=== PATIENT | female | born 1995 | race Caucasian/White ===

== ENCOUNTER 2018-02-22 19:19 | Emergency (ER) | payer SELFPAY ==
[2018-02-22] MEDS ORDERED: PREDNISONE 20 MG TABLET PO ONE (20:05)
[2018-02-22] MEDS ORDERED: DIAZEPAM INJ 10 MG/2 ML DISP.SYRIN IM ONE (20:05)
--- NOTE | 2018-02-22 20:11 | ER Document Report ---
HPI - HPI Patient complains to provider of: Lower back pain Pain Level: 4 Context: Patient is a 22-year-old female who comes emergency room for chief complaint of worsening left lower back pain for about 2-3 days now, she states she thinks was because she lifted a child, she did feel a little bit of discomfort at the time, she states that it has significantly worsened and now she has a sharp spasming persistent pain in the left lower back. She denies radiation, numbness , incontinence, fever, history of IV drug abuse. She states she has had similar back pain in the past including herniated disc in the past, she has had MRIs, she states she has scoliosis. She takes no daily medications. LMP within the past month. - EENT EENT: DENIES: Sore Throat, Ear Pain, Eye problems - NEURO Neurology: DENIES: Headache, Weakness, Vision blurred, Dizzinesss / Vertigo - CARDIOVASCULAR Cardiovascular: DENIES: Chest pain - RESPIRATORY Respiratory: DENIES: Trouble Breathing, Coughing - GASTROINTESTINAL Gastrointestinal: DENIES: Abdominal Pain, Black / Bloody Stools - URINARY Urinary: DENIES: Dysuria, Urgency, Frequency - MUSCULOSKELETAL Musculoskeletal: DENIES: Extremity pain Past Medical History - General Information source: Patient - Social History Smoking Status: Current Every Day Smoker Frequency of alcohol use: None Drug Abuse: None Lives with: Family Family History: Reviewed & Not Pertinent Patient has suicidal ideation: No Patient has homicidal ideation: No Renal/ Medical History: Denies: Hx Peritoneal Dialysis Musculoskeletal Medical History: Reports Hx Musculoskeletal Deformity - scoliosis Surgical Hx: Negative - Immunizations Immunizations up to date: Yes Hx Diphtheria, Pertussis, Tetanus Vaccination: Yes Vertical Provider Document - CONSTITUTIONAL General Appearance: WD/WN, Thin, Other - patient moves with obvious discomfort, tries to stay straight and still - INFECTION CONTROL TRAVEL OUTSIDE OF THE [place] IN LAST 30 DAYS: No - HEENT HEENT: Atraumatic, Normal ENT Exam, Normocephalic - NECK Neck: Normal Inspection - RESPIRATORY Respiratory: Breath Sounds Normal, No Respiratory Distress - CARDIOVASCULAR Cardiovascular: Regular Rate, Regular Rhythm - GI/ABDOMEN Gastrointestinal: Abdomen Soft, Abdomen Non-Tender - BACK Back: negative: Normal Inspection - Tenderness along the left paralumbar musculature with muscular spasm noted. No midline tenderness, no saddle anesthesia, no signs of trauma. Normal upper and lower extremity range of motion , normal strength, normal distal neurovascular exam. - MUSCULOSKELETAL/EXTREMETIES Musculoskeletal/Extremeties: MAEW, FROM, Non-Tender - NEURO Level of Consciousness: Awake, Alert, Appropriate Motor/Sensory: No Motor Deficit, No Sensory Deficit - DERM Integumentary: Warm, Dry, No Rash Course - Re-evaluation Re-evalutation: Patient is visibly uncomfortable, she moves gingerly, she has palpable muscle spasms in her left lower back. No midline tenderness, normal distal neurovascular exam, no saddle anesthesia, no incontinence. No fever. Denies any history of IV drug abuse. Patient has had similar symptoms in the past but not in a long time. She has a mechanism of injury but no impact injury, no signs of trauma. Vital signs unremarkable. Patient will be placed on steroids , muscle relaxant, discussed recommendations, follow-up, and return precautions in detail with patient and significant other. They state understanding and agreement. - Vital Signs Vital signs: Temp Pulse Resp BP Pulse Ox 98.4 F 91 20 129/76 H 99 02/22/18 19:32 02/22/18 19:32 02/22/18 19:32 02/22/18 19:32 02/22/18 19:32 Discharge - Discharge Clinical Impression: Lower back pain Qualifiers: Chronicity: acute Back pain laterality: left Sciatica presence: without sciatica Qualified Code(s): M54.5 - Low back pain Condition: Stable Disposition: HOME, SELF-CARE Additional Instructions: Examination is consistent with muscular spasm in the lumbar paraspinal muscles, this could be from a herniated disc or muscle strain. Recommendation is to take medication as prescribed, apply heat to the area, avoid lifting/twisting. Follow-up with primary care for additional evaluation and management. Return for any concerning worsening symptoms including numbness, fever, loss of bowel or bladder control, or any other concerning symptoms. Prescriptions: Diazepam [Valium 5 mg Tablet] 1 - 2 mg PO TID PRN #12 tablet PRN Reason: Prednisone 60 mg PO DAILY #10 tablet Forms: Treatment of Relative/Child
[2018-02-22 20:59] VITALS: BP 118/76
== END 2018-02-22 20:56 | disposition home or self-care (01) ==
LOC: ER 19:19
DX: M54.5 Low back pain (principal); M62.830 Muscle spasm of back; F17.200 Nicotine dependence, unspecified, uncomplicated
CPT/HCPCS: 99283; 96372; J3360; J7512

== ENCOUNTER 2018-05-26 17:47 | Emergency (ER) | payer SELFPAY ==
[2018-05-26 18:06] VITALS: BP 123/73
[2018-05-26] MEDS ORDERED: SULFAMETHOXAZOLE/TRIMETHOPRIM 800-160 MG TABLET PO ONE (19:25)
[2018-05-26] MEDS ORDERED: PHENAZOPYRIDINE HCL 100 MG TABLET PO ONE (19:26)
[2018-05-26] MEDS ORDERED: ONDANSETRON ODT 4 MG TAB (6 TAB/ER DISP) PO PRN (19:26)
--- NOTE | 2018-05-26 19:29 | ER Document Report ---
ED General - General Chief Complaint: Flank Pain Stated Complaint: ABDOMINAL PAIN, LOW BACK PAIN Time Seen by Provider: 05/26/18 19:16 Notes: Patient is a 22-year-old female that presents to the emergency department for chief complaint of suprapubic pain and dysuria. Patient states that she started having symptoms over the weekend, and worsened yesterday dramatically, where she had significant dysuria, and urinary frequency, and suprapubic pain she also has some low back pain associated. Denies any any fevers, chills, night sweats, she states she did have one episode of vomiting yesterday, but nothing else today. Currently rates the pain she is experiencing is a 1 out of 10, describes as an aching sensation in her lower back, nonradiating. Denies having any flank pain associated with this. Past Medical History: Hypothyroidism Past Surgical History: Knee surgery, hand surgery, tonsillectomy Social History: Admits smoking cigarettes, denies alcohol or illicit drug use Family History: Reviewed and noncontributory for presenting illness Allergies: Reviewed, see documented allergy list. REVIEW OF SYSTEMS: Other than noted above, the 12 point review of systems was reviewed with the patient and were negative, all pertinent findings are included in the HPI. PHYSICAL EXAMINATION: Vital signs reviewed, nursing noted reviewed. GENERAL: Well-appearing, well-nourished and in no acute distress. HEAD: Atraumatic, normocephalic. EYES: Eyes appear normal, extraocular movements intact, sclera anicteric, conjunctiva are normal. ENT: nares patent, oropharynx clear without exudates. Moist mucous membranes. NECK: Normal range of motion, supple without lymphadenopathy LUNGS: Breath sounds clear to auscultation bilaterally and equal. No wheezes rales or rhonchi. HEART: Regular rate and rhythm without murmurs ABDOMEN: Soft, no CVA tenderness, mild suprapubic tenderness to palpation, normoactive bowel sounds. No rebound, guarding, or rigidity. No masses appreciated. EXTREMITIES: Nontender, good range of motion, no pitting or edema. NEUROLOGICAL: No focal neurological deficits. Moves all extremities spontaneously Motor and sensory grossly intact on exam. PSYCH: Normal mood, normal affect. SKIN: Warm, Dry, normal turgor, no rashes or lesions noted on exposed skin TRAVEL OUTSIDE OF THE [place] IN LAST 30 DAYS: No - Related Data Allergies/Adverse Reactions: naproxen Allergy (Verified 05/26/18 17:49) Past Medical History - Social History Smoking Status: Current Every Day Smoker Chew tobacco use (# tins/day): No Frequency of alcohol use: None Drug Abuse: None Family History: Reviewed & Not Pertinent Patient has suicidal ideation: No Patient has homicidal ideation: No Renal/ Medical History: Denies: Hx Peritoneal Dialysis Musculoskeletal Medical History: Reports Hx Musculoskeletal Deformity - scoliosis Past Surgical History: Reports: Hx Oral Surgery, Hx Orthopedic Surgery - R knee , hand, Hx Tonsillectomy - Immunizations Immunizations up to date: Yes Hx Diphtheria, Pertussis, Tetanus Vaccination: Yes Physical Exam - Vital signs Vitals: Temp Pulse Resp BP Pulse Ox 98.4 F 95 18 123/73 99 05/26/18 18:05 05/26/18 18:05 05/26/18 18:05 05/26/18 18:05 05/26/18 18:05 Course - Re-evaluation Re-evalutation: Patient seen and examined vital signs reviewed. Laboratory data and imaging were ordered as appropriate for the patient's presenting symptoms and complaint, with consideration of any critical or life threatening conditions that may be associated with their obtained history and exam as noted above. Patient was treated with Pyridium, and p.o. Bactrim Results were reviewed when available and demonstrated urinalysis with leukocyte esterase, and significant white blood cells, consistent with urinary tract infection, given patient's presenting symptoms as well The patient was re-evaluated and was improved Evaluation was most consistent with urinary tract infection, patient will prescribe Bactrim twice daily for 5 days, and Pyridium for 3 days, advised to follow-up with her primary care physician. Results were discussed with the patient at this point, after careful consideration I feel that that patient can be discharged from the emergency department, the patient was educated treatments and reasons to return to the emergency department based on their presumed diagnosis as noted above, they were advised to followup with a primary care physician in 2-3 days. Patient was agreeable to plan of care. *Note is created using voice recognition software and may contain spelling, syntax or grammatical errors. Laboratory 05/26/18 19:15 Urine Color YELLOW Urine Appearance TURBID Urine pH 6.0 Ur Specific [place] 1.020 Urine Protein 100 H Urine Glucose (UA) NEGATIVE Urine Ketones NEGATIVE Urine Blood NEGATIVE Urine Nitrite NEGATIVE Urine Bilirubin NEGATIVE Urine Urobilinogen NEGATIVE Ur Leukocyte Esterase MODERATE H Urine WBC (Auto) 121 Urine RBC (Auto) 27 Squamous Epi Cells Auto 439 Urine Mucus (Auto) MOD Urine Ascorbic Acid 20 H - Vital Signs Vital signs: Temp Pulse Resp BP Pulse Ox 98.4 F 95 18 123/73 99 05/26/18 18:05 05/26/18 18:05 05/26/18 18:05 05/26/18 18:05 05/26/18 18:05 - Laboratory Laboratory results interpreted by me: 05/26/18 19:15 Urine Protein 100 H Ur Leukocyte Esterase MODERATE H Urine Ascorbic Acid 20 H Discharge - Discharge Clinical Impression: UTI (urinary tract infection) Qualifiers: Urinary tract infection type: site unspecified Hematuria presence: without hematuria Qualified Code(s): N39.0 - Urinary tract infection, site not specified Condition: Stable Disposition: HOME, SELF-CARE Instructions: Urinary Tract Infection ([facility]) Additional Instructions: Please take medications as prescribed, if you develop signs of yeast infection, please fill the prescription for Diflucan, and take the one-time dose, to relieve your symptoms of this, symptoms of a yeast infection include white discharge, and itching. Take all medications as prescribed and finish the complete course of antibiotics even if you are feeling better sooner. Prescriptions: Fluconazole [Diflucan] 150 mg PO ONCE PRN #1 tablet PRN Reason: Phenazopyridine HCl [Pyridium 100 Mg Tablet] 100 mg PO TID #9 tablet Sulfamethoxazole/Trimethoprim [Bactrim Ds Tablet] 1 each PO BID #10 tablet Referrals: TC BURTON MD [ACTIVE STAFF] - Follow up in 3-5 days (or your primary care. )
[2018-05-26 19:52] LABS: APPEARANCE,URINE TURBID; BILIRUBIN,URINE NEGATIVE (NEGATIVE); COLOR,URINE YELLOW; GLUCOSE, URINE NEGATIVE (NEGATIVE); KETONES,URINE NEGATIVE (NEGATIVE); LEUKOCYTE ESTERASE,URINE MODERATE (NEGATIVE); NITRITE,URINE NEGATIVE (NEGATIVE); PROTEIN,URINE 100 mg/dL (NEGATIVE); UROBILINOGEN,URINE NEGATIVE mg/dL (<2.0)
== END 2018-05-26 19:34 | disposition home or self-care (01) ==
LOC: ER 17:47
DX: N39.0 Urinary tract infection, site not specified (principal); F17.210 Nicotine dependence, cigarettes, uncomplicated
CPT/HCPCS: 99284; 87086; 81001; J3490

== ENCOUNTER 2018-05-27 02:24 | Emergency (ER) | payer SELFPAY ==
[2018-05-27 03:09] LABS: ABSOLUTE LYMPHOCYTES (AUTO) 2.2 10^3/uL (0.5-4.7); ABSOLUTE MONOCYTES (AUTO) 0.8 10^3/uL (0.1-1.4); ABSOLUTE NEUT (AUTO) 4.6 10^3/uL (1.7-8.2); BASOPHILS % (AUTO) 0.7 % (0-2); EOSINOPHILS % (AUTO) 0.4 % (0-6); HEMATOCRIT 40.8 % (36.0-47.0); HEMOGLOBIN 14.3 g/dL (12.0-15.5); LYMPHOCYTES % (AUTO) 28.9 % (13-45); MEAN CORPUSCULAR HEMOGLOBIN 32.5 pg (27.0-33.4); MEAN CORPUSCULAR VOLUME 93 fl (80-97); PLATELET COUNT 235 10^3/uL (150-450); RED BLOOD COUNT 4.39 10^6/uL (3.72-5.28); RED CELL DISTRIBUTION WIDTH 13.1 % (11.5-14.0); TOTAL CELLS COUNTED % (AUTO) 100 %; WHITE BLOOD COUNT 7.6 10^3/uL (4.0-10.5)
--- NOTE | 2018-05-27 03:23 | ER Document Report ---
ED General - General Chief Complaint: Suicidal Ideation Stated Complaint: PSYCH Time Seen by Provider: 05/27/18 02:32 Mode of Arrival: Medic Information source: Patient TRAVEL OUTSIDE OF THE [place] IN LAST 30 DAYS: No - HPI Notes: Patient is a 22-year-old female history of depression and previous suicidal ideation and attempts presents to the emergency department with report that she is depressed because the holidays are coming up and she was thinking about hanging herself using her shoelaces. The patient has previously had suicidal ideation with hospitalizations dating back to age 7 when she had thoughts of killing her mother and herself related to stress over a divorce. The patient states she last had a hospitalization at age 17. The patient is currently living for the last 6 months with her boyfriend in a hotel. The patient states the boyfriend is nice to her and appropriate, but she feels guilty about treating the boyfriend negatively. The patient denies any hallucinations or homicidal ideation. The patient contacted family members and the boyfriend about her suicidal ideation and went out to a local park where the police and EMS picked her up. She was cooperative with police and EMS. Patient has seen several therapists in the past, but reports no long-standing relationship with the therapist and states that is part of the reason she is having some difficulty. Patient was seen earlier tonight with a urinary tract infection and started on Bactrim antibiotic. She reports no fever, nausea, vomiting, constipation, diarrhea, chest pain, difficulty breathing, cough, congestion. - Related Data Allergies/Adverse Reactions: naproxen Allergy (Verified 05/26/18 17:49) Past Medical History - General Information source: Patient - Social History Smoking Status: Current Every Day Smoker Frequency of alcohol use: None Drug Abuse: None Lives with: Friend Family History: Reviewed & Not Pertinent Renal/ Medical History: Denies: Hx Peritoneal Dialysis Musculoskeletal Medical History: Reports Hx Musculoskeletal Deformity - scoliosis Past Surgical History: Reports: Hx Oral Surgery, Hx Orthopedic Surgery - R knee , hand, Hx Tonsillectomy - Immunizations Immunizations up to date: Yes Hx Diphtheria, Pertussis, Tetanus Vaccination: Yes Review of Systems - Review of Systems -: Yes All other systems reviewed and negative Physical Exam - Notes Notes: PHYSICAL EXAMINATION: GENERAL: Well-appearing, well-nourished and in no acute distress. HEAD: Atraumatic, normocephalic. EYES: Pupils equal round and reactive to light, extraocular movements intact, conjunctiva are normal. ENT: Nares patent, oropharynx clear without exudates. Moist mucous membranes. NECK: Normal range of motion, supple without lymphadenopathy LUNGS: Breath sounds clear to auscultation bilaterally and equal. No wheezes rales or rhonchi. HEART: Regular rate and rhythm without murmurs ABDOMEN: Soft, nontender, nondistended abdomen. No guarding, no rebound. No masses appreciated. Female : deferred Musculoskeletal: Normal range of motion, no pitting or edema. No cyanosis. NEUROLOGICAL: Cranial nerves grossly intact. Normal speech, normal gait. Normal sensory, motor exams PSYCH: normal affect. Patient describes a somewhat depressed mood although she seems appropriate in her discussion. Patient describes suicidal ideation. She denies homicidal ideation or hallucinations. Patient reports she is looking into being able to move into permanent housing, as she and her boyfriend have been staying in a hotel for the last 6 months. SKIN: Warm, Dry, normal turgor, no rashes or lesions noted. Course - Re-evaluation Re-evalutation: 05/27/18 03:25 Patient was placed back on Bactrim antibiotic for the UTI she was diagnosed with earlier. Patient will require medical clearance prior to psychiatric evaluation and further care. - Laboratory Result Diagrams: 05/27/18 03:00 05/27/18 03:00 - EKG Interpretation by [facility] EKG shows normal: Sinus rhythm Additional EKG results interpreted by me: 05/27/18 03:24 EKG as interpreted by [facility] showed normal sinus rhythm heart rate of 80. There is no gross evidence for acute CA or ischemia noted. There is no old EKG available for comparison. Discharge - Discharge Clinical Impression: Suicidal ideation Urinary tract infection Qualifiers: Urinary tract infection type: acute cystitis Hematuria presence: without hematuria Qualified Code(s): N30.00 - Acute cystitis without hematuria Depression Qualifiers: Depression Type: major depressive disorder Major depression recurrence: recurrent Active/Remission status: currently active Major depression episode severity: moderate Qualified Code(s): F33.1 - Major depressive disorder, recurrent, moderate
[2018-05-27 03:30] LABS: ALANINE AMINOTRANSFERASE 20 U/L (9-52); ALBUMIN 4.5 g/dL (3.5-5.0); ALKALINE PHOSPHATASE 67 U/L (38-126); ANION GAP 15 (5-19); ASPARTATE AMINO TRANSFERASE 19 U/L (14-36); BILIRUBIN,DIRECT 0.2 mg/dL (0.0-0.4); BILIRUBIN,TOTAL 0.7 mg/dL (0.2-1.3); BLOOD UREA NITROGEN 7 mg/dL (7-20); CALCIUM 9.8 mg/dL (8.4-10.2); CARBON DIOXIDE 26 mmol/L (22-30); CHLORIDE 102 mmol/L (98-107); GLUCOSE 87 mg/dL (75-110); TOTAL PROTEIN 7.4 g/dL (6.3-8.2)
[2018-05-27 03:32] LABS: ACETAMINOPHEN < 10 ug/mL (10-30); ALCOHOL < 10 mg/dL (NONE DETECTED)
[2018-05-27 03:43] LABS: URINE AMPHETAMINES SCREEN NEGATIVE; URINE BARBITURATES SCREEN NEGATIVE; URINE BENZODIAZEPINES SCREEN NEGATIVE; URINE COCAINE SCREEN NEGATIVE; URINE MARIJUANA (THC) SCREEN UNCONFIRMED POSITIVE; URINE METHADONE SCREEN NEGATIVE; URINE PHENCYCLIDINE SCREEN NEGATIVE
[2018-05-27] MEDS ORDERED: ACETAMINOPHEN 325 MG TABLET PO ONE (05:40)
--- NOTE | 2018-05-27 08:15 | EKG REPORT ---
SEVERITY:- NORMAL ECG - SINUS RHYTHM : Confirmed by: Aracely Jean-Baptiste MD 27-May-2018 08:15:02
--- NOTE | 2018-05-27 09:18 | ER Document Report ---
Doctor's Note Notes: Laboratory 05/27/18 05/27/18 05/27/18 03:00 03:00 03:08 WBC 7.6 RBC 4.39 Hgb 14.3 Hct 40.8 MCV 93 MCH 32.5 MCHC 35.0 RDW 13.1 Plt Count 235 Seg Neutrophils % 60.0 Lymphocytes % 28.9 Monocytes % 10.0 Eosinophils % 0.4 Basophils % 0.7 Absolute Neutrophils 4.6 Absolute Lymphocytes 2.2 Absolute Monocytes 0.8 Absolute Eosinophils 0.0 Absolute Basophils 0.0 Sodium 143.0 Potassium 4.0 Chloride 102 Carbon Dioxide 26 Anion Gap 15 BUN 7 Creatinine 0.59 Est GFR ( Amer) > 60 Est GFR (Non-Af Amer) > 60 Glucose 87 Calcium 9.8 Total Bilirubin 0.7 Direct Bilirubin 0.2 Neonat Total Bilirubin Not Reportable Neonat Direct Bilirubin Not Reportable Neonat Indirect Bili Not Reportable AST 19 ALT 20 Alkaline Phosphatase 67 Total Protein 7.4 Albumin 4.5 Urine HCG, Qual Urine Opiates Screen NEGATIVE Urine Methadone Screen NEGATIVE Acetaminophen < 10 L Ur Barbiturates Screen NEGATIVE Ur Phencyclidine Scrn NEGATIVE Ur Amphetamines Screen NEGATIVE U Benzodiazepines Scrn NEGATIVE Urine Cocaine Screen NEGATIVE U Marijuana (THC) Screen UNCONFIRMED POSITIVE Serum Alcohol < 10 05/27/18 03:08 WBC RBC Hgb Hct MCV MCH MCHC RDW Plt Count Seg Neutrophils % Lymphocytes % Monocytes % Eosinophils % Basophils % Absolute Neutrophils Absolute Lymphocytes Absolute Monocytes Absolute Eosinophils Absolute Basophils Sodium Potassium Chloride Carbon Dioxide Anion Gap BUN Creatinine Est GFR ( Amer) Est GFR (Non-Af Amer) Glucose Calcium Total Bilirubin Direct Bilirubin Neonat Total Bilirubin Neonat Direct Bilirubin Neonat Indirect Bili AST ALT Alkaline Phosphatase Total Protein Albumin Urine HCG, Qual NEGATIVE Urine Opiates Screen Urine Methadone Screen Acetaminophen Ur Barbiturates Screen Ur Phencyclidine Scrn Ur Amphetamines Screen U Benzodiazepines Scrn Urine Cocaine Screen U Marijuana (THC) Screen Serum Alcohol 05/27/18 09:17 22-year-old female with history of depression presented with suicidal ideation of hanging herself with her shoelaces due to worsening depression secondary to upcoming holidays. As the rounding physician this AM, I assessed the patient's labs, vitals, and records. No concerning findings this morning. Patient denies any acute complaints. Patient is cleared for disposition by psychiatry. PHYSICAL EXAMINATION: GENERAL: Well-appearing, well-nourished and in no acute distress. HEAD: Atraumatic, normocephalic. EYES: Pupils equal round extraocular movements intact, conjunctiva are normal. ENT: Nares patent NECK: Normal range of motion LUNGS: No respiratory distress Musculoskeletal: Normal range of motion NEUROLOGICAL: Normal speech, normal gait. PSYCH: Normal mood, normal affect. SKIN: Warm, Dry, normal turgor, no rashes or lesions noted. 05/27/18 09:29 Patient assessed by psychiatry team and will be discharged home.
[2018-05-27 09:32] VITALS: BP 102/62
[2018-05-27] MEDS ORDERED: SULFAMETHOXAZOLE/TRIMETHOPRIM 800-160 MG TABLET PO SCH (10:00)
== END 2018-05-27 09:46 | disposition home or self-care (01) ==
LOC: ER 02:24
DX: F33.1 Major depressive disorder, recurrent, moderate (principal); R45.851 Suicidal ideations; N30.00 Acute cystitis without hematuria; F17.200 Nicotine dependence, unspecified, uncomplicated; Z88.8 Allergy status to other drugs, medicaments and biological substances
CPT/HCPCS: 36415; 80053; 80307; 81025; 85025; 93005; 93010; 99285

== ENCOUNTER 2018-08-12 15:12 | Emergency (ER) | payer SELFPAY ==
--- NOTE | 2018-08-12 17:03 | ER Document Report ---
ED General - General Chief Complaint: OB Problem (<20wks) Stated Complaint: NAUSEA Time Seen by Provider: 08/12/18 16:42 Primary Care Provider: [facility] [Provider Group] - Follow up as needed [facility] [NO [facility]AL MD] - Follow up as needed Notes: Patient is a 23-year-old female, , approximately 8 weeks gravid that presents to the emergency department for chief complaint of nausea, vomiting and heartburn symptoms. Patient states his been having symptoms over the last several days, she recently found out that she was had an ultrasound performed on the second of this month confirming a single IUP. She had some lower abdominal cramping associated with this. She is had some nausea, and vomiting, and heartburn associated with it. She denies having any vaginal bleeding or discharge, having any dysuria or hematuria. She is otherwise been doing okay, no fevers, chills, shortness of breath or difficulty breathing. Past Medical History: Denies chronic medical conditions Past Surgical History: Denies surgical history Social History: Former smoker, quit when she found that she was , denies current alcohol or drug use. Family History: Reviewed and noncontributory for presenting illness Allergies: Reviewed, see documented allergy list. REVIEW OF SYSTEMS: Other than noted above, the 12 point review of systems was reviewed with the patient and were negative, all pertinent findings are included in the HPI. PHYSICAL EXAMINATION: Vital signs reviewed, nursing noted reviewed. GENERAL: Well-appearing, well-nourished and in no acute distress. HEAD: Atraumatic, normocephalic. EYES: Eyes appear normal, extraocular movements intact, sclera anicteric, conjunctiva are normal. ENT: nares patent, oropharynx clear without exudates. Moist mucous membranes. NECK: Normal range of motion, supple without lymphadenopathy LUNGS: Breath sounds clear to auscultation bilaterally and equal. No wheezes rales or rhonchi. HEART: Regular rate and rhythm without murmurs ABDOMEN: Soft, nontender, normoactive bowel sounds. No rebound, guarding, or rigidity. No masses appreciated. EXTREMITIES: Nontender, good range of motion, no pitting or edema. NEUROLOGICAL: No focal neurological deficits. Moves all extremities spontaneously Motor and sensory grossly intact on exam. PSYCH: Normal mood, normal affect. SKIN: Warm, Dry, normal turgor, no rashes or lesions noted on exposed skin TRAVEL OUTSIDE OF THE [place] IN LAST 30 DAYS: No - Related Data Allergies/Adverse Reactions: naproxen Allergy (Verified 05/26/18 17:49) Past Medical History - Social History Smoking Status: Former Smoker Family History: Reviewed & Not Pertinent Patient has suicidal ideation: No Patient has homicidal ideation: No Renal/ Medical History: Denies: Hx Peritoneal Dialysis Musculoskeletal Medical History: Reports Hx Musculoskeletal Deformity - scoliosis Past Surgical History: Reports: Hx Oral Surgery, Hx Orthopedic Surgery - R knee, hand, Hx Tonsillectomy - Immunizations Immunizations up to date: Yes Hx Diphtheria, Pertussis, Tetanus Vaccination: Yes Physical Exam - Vital signs Vitals: Temp Pulse Resp BP Pulse Ox 98.7 F 74 17 115/64 100 08/12/18 15:21 08/12/18 15:21 08/12/18 15:21 08/12/18 15:21 08/12/18 15:21 Course - Re-evaluation Re-evalutation: Patient seen and examined vital signs reviewed. UA was ordered to evaluate for possible UTI and , patient's other symptoms are consistent with early , including her nausea and vomiting, but she did not appear overtly dehydrated on exam Results were reviewed when available and demonstrated unremarkable UA The patient was re-evaluated and was stable Evaluation was most consistent with nausea, vomiting and pelvic cramping in , patient prescribed ranitidine to take for her reflux symptoms, advised to take Unisom and vitamin B6, in combination to help with her nausea and vomiting in , advised to follow-up with the health department as well as [employer] Results were discussed with the patient at this point, after careful consideration I feel that that patient can be discharged from the emergency department, the patient was educated treatments and reasons to return to the emergency department based on their presumed diagnosis as noted above, they were advised to followup with a primary care physician in 2-3 days. Patient was agreeable to plan of care. *Note is created using voice recognition software and may contain spelling, syntax or grammatical errors. Laboratory 08/12/18 17:23 Urine Color YELLOW Urine Appearance CLOUDY Urine pH 7.0 Ur Specific [place] 1.020 Urine Protein NEGATIVE Urine Glucose (UA) NEGATIVE Urine Ketones 20 H Urine Blood NEGATIVE Urine Nitrite NEGATIVE Urine Bilirubin NEGATIVE Urine Urobilinogen NEGATIVE Ur Leukocyte Esterase NEGATIVE Urine WBC (Auto) 1 Urine RBC (Auto) 2 Squamous Epi Cells Auto <1 Amorphous Sediment Auto TRACE Urine Mucus (Auto) OCC Urine Ascorbic Acid 40 H - Vital Signs Vital signs: Temp Pulse Resp BP Pulse Ox 98.6 F 78 16 112/69 100 08/12/18 18:51 08/12/18 18:51 08/12/18 18:51 08/12/18 18:51 08/12/18 18:51 - Laboratory Laboratory results interpreted by me: 08/12/18 17:23 Urine Ketones 20 H Urine Ascorbic Acid 40 H Discharge - Discharge Clinical Impression: Pelvic cramping Nausea and vomiting Qualifiers: Vomiting type: unspecified Vomiting Intractability: non-intractable Qualified Code(s): R11.2 - Nausea with vomiting, unspecified Condition: Stable Disposition: HOME, SELF-CARE Instructions: Pelvic Pain in ([facility]) Additional Instructions: To help with help with reflux symptoms and heartburn, you can take the prescribed ranitidine twice daily, for nausea you can take [id number] dicyclomine (Unisom), along with [id number] vitamin B6. You can take this combination twice a day, the Unisom can make you drowsy, so if you are going to be driving, I would not take this medication. Otherwise please follow-up with the health department, and women's health for further evaluation and management. Prescriptions: RX: Ranitidine HCl [Acid Director Pharmacology] 150 mg PO BID #30 tablet [facility] [NO LOCAL MD] - Follow up as needed [facility] [Provider Group] - Follow up as needed
[2018-08-12 18:39] LABS: AMORPHOUS SEDIMENT,URINE TRACE /HPF; APPEARANCE,URINE CLOUDY; BILIRUBIN,URINE NEGATIVE (NEGATIVE); COLOR,URINE YELLOW; GLUCOSE, URINE NEGATIVE (NEGATIVE); KETONES,URINE 20 mg/dL (NEGATIVE); LEUKOCYTE ESTERASE,URINE NEGATIVE (NEGATIVE); NITRITE,URINE NEGATIVE (NEGATIVE); PROTEIN,URINE NEGATIVE (NEGATIVE); UROBILINOGEN,URINE NEGATIVE mg/dL (<2.0)
[2018-08-12 18:56] VITALS: BP 112/69
== END 2018-08-12 18:51 | disposition home or self-care (01) ==
LOC: ER 15:12
DX: O21.9 Vomiting of pregnancy, unspecified (principal); O26.891 Other specified pregnancy related conditions, first trimester; R10.2 Pelvic and perineal pain; R10.30 Lower abdominal pain, unspecified; Z3A.08 8 weeks gestation of pregnancy; Z87.891 Personal history of nicotine dependence
CPT/HCPCS: 81001; 87086; 99283

== ENCOUNTER 2018-08-28 17:46 | Emergency (ER) | payer SELFPAY ==
[2018-08-28 18:46] LABS: ABSOLUTE EOSINOPHILS # (AUTO) 0.1 10^3/uL (0.0-0.6); ABSOLUTE LYMPHOCYTES (AUTO) 2.1 10^3/uL (0.5-4.7); ABSOLUTE MONOCYTES (AUTO) 0.8 10^3/uL (0.1-1.4); ABSOLUTE NEUT (AUTO) 7.2 10^3/uL (1.7-8.2); BASOPHILS % (AUTO) 0.3 % (0-2); EOSINOPHILS % (AUTO) 0.5 % (0-6); HEMATOCRIT 38.7 % (36.0-47.0); HEMOGLOBIN 13.7 g/dL (12.0-15.5); LYMPHOCYTES % (AUTO) 20.5 % (13-45); MEAN CORPUSCULAR HEMOGLOBIN 33.2 pg (27.0-33.4); MEAN CORPUSCULAR HGB CONC 35.5 g/dL (32.0-36.0); MEAN CORPUSCULAR VOLUME 93 fl (80-97); MONOCYTES % (AUTO) 7.5 % (3-13); PLATELET COUNT 245 10^3/uL (150-450); RED BLOOD COUNT 4.14 10^6/uL (3.72-5.28); RED CELL DISTRIBUTION WIDTH 13.8 % (11.5-14.0); SEGMENTED NEUTROPHILS % (AUTO) 71.2 % (42-78); TOTAL CELLS COUNTED % (AUTO) 100 %; WHITE BLOOD COUNT 10.2 10^3/uL (4.0-10.5)
[2018-08-28 19:06] LABS: ALANINE AMINOTRANSFERASE 16 U/L (9-52); ALBUMIN 4.4 g/dL (3.5-5.0); ALKALINE PHOSPHATASE 41 U/L (38-126); ANION GAP 9 (5-19); ASPARTATE AMINO TRANSFERASE 15 U/L (14-36); BILIRUBIN,DIRECT 0.1 mg/dL (0.0-0.4); BILIRUBIN,TOTAL 0.4 mg/dL (0.2-1.3); BLOOD UREA NITROGEN 5 mg/dL (7-20); CALCIUM 9.5 mg/dL (8.4-10.2); CARBON DIOXIDE 24 mmol/L (22-30); CHLORIDE 105 mmol/L (98-107); GLUCOSE 92 mg/dL (75-110); POTASSIUM 4.4 mmol/L (3.6-5.0); SODIUM 138.2 mmol/L (137-145); TOTAL PROTEIN 6.9 g/dL (6.3-8.2)
[2018-08-28 19:07] LABS: ACETAMINOPHEN < 10 ug/mL (10-30); ALCOHOL < 10 mg/dL (NONE DETECTED); SALICYLATE < 1.0 mg/dL (2.0-20.0)
--- NOTE | 2018-08-28 19:30 | EKG REPORT ---
SEVERITY:- NORMAL ECG - SINUS RHYTHM : Confirmed by: Héctor Mistry MD 28-Aug-2018 19:29:24
[2018-08-28 20:13] LABS: APPEARANCE,URINE SLIGHTLY-CLOUDY; BILIRUBIN,URINE NEGATIVE (NEGATIVE); COLOR,URINE YELLOW; GLUCOSE, URINE NEGATIVE (NEGATIVE); KETONES,URINE 80 mg/dL (NEGATIVE); LEUKOCYTE ESTERASE,URINE TRACE (NEGATIVE); NITRITE,URINE NEGATIVE (NEGATIVE); PROTEIN,URINE NEGATIVE (NEGATIVE); URINE SPECIFIC GRAVITY 1.024; UROBILINOGEN,URINE NEGATIVE mg/dL (<2.0)
[2018-08-28] MEDS ORDERED: FAMOTIDINE 20 MG TABLET PO ONE (20:17)
[2018-08-28 20:18] LABS: URINE AMPHETAMINES SCREEN NEGATIVE; URINE BARBITURATES SCREEN NEGATIVE; URINE BENZODIAZEPINES SCREEN NEGATIVE; URINE COCAINE SCREEN NEGATIVE; URINE MARIJUANA (THC) SCREEN UNCONFIRMED POSITIVE; URINE METHADONE SCREEN NEGATIVE; URINE PHENCYCLIDINE SCREEN NEGATIVE
--- NOTE | 2018-08-28 21:04 | ER Document Report ---
Addendum entered and electronically signed by VERO CALDERON DO 08/29/18 11:11: Discharge - Discharge Clinical Impression: Suicidal ideation, First trimester , Depression with anxiety Condition: Stable Disposition: HOME, SELF-CARE Additional Instructions: You have been evaluated both medical and behavioral health teams have been deemed appropriate for discharge. You are highly encouraged to follow-up with both outpatient psychological and neurological services. You have provided a local resource list of area providers including mobile crisis contact information. DEPRESSION: Your evaluation reveals that you have mental depression. While symptoms may be vague, they often include disturbance of sleep, fatigue, loss of appetite, and general loss of interest in life. While depression may be a side effect of drugs, or a reaction to a major change in your life, many cases have no known cause. If depression is acute, and related to a major loss in your life, you can expect it to clear completely with time. If you have been depressed a long time, are prone to repeated bouts of depression or low mood, or have been thinking of suicide, get help. Depression can be treated with anti-depressant medication and counselling. Long-term depression will often take a few weeks to clear, even with appropriate medication. Follow-up care is important. SUICIDAL IDEATION: Suicidal ideation is a common medical term for thoughts about suicide, which may be as detailed as a formulated plan, without the suicidal act itself. Although most people who undergo suicidal ideation do not commit suicide, some go on to make suicide attempts. The range of suicidal ideation varies greatly from fleeting to detailed planning, role playing, and unsuccessful attempts. While thoughts about suicide are common, most people do not carry out serious actions to commit suicide. Based upon your evaluation and discussion with you, we do not believe you are currently at risk to act upon your thoughts of suicide. You have agreed to return to the Emergency Department, at any time, if you feel inclined to act upon your suicidal thoughts. FOLLOW-UP CARE: If you experience worsening or a significant change in your symptoms, notify the physician immediately or return to the Emergency Department at any time for re- evaluation. Referrals: [facility] [Outside] - 08/31/18 [facility] [Outside] - Follow up as needed Addendum entered and electronically signed by LINDA CONWAY LCSWA 08/29/18 10:58: Discharge - Discharge Clinical Impression: Suicidal ideation, First trimester , Depression with anxiety Condition: Stable Disposition: HOME, SELF-CARE Additional Instructions: You have been evaluated both medical and behavioral health teams have been deemed appropriate for discharge. You are highly encouraged to follow-up with both outpatient psychological and neurological services. You have provided a local resource list of area providers including mobile crisis contact information. DEPRESSION: Your evaluation reveals that you have mental depression. While symptoms may be vague, they often include disturbance of sleep, fatigue, loss of appetite, and general loss of interest in life. While depression may be a side effect of drugs, or a reaction to a major change in your life, many cases have no known cause. If depression is acute, and related to a major loss in your life, you can expect it to clear completely with time. If you have been depressed a long time, are prone to repeated bouts of depression or low mood, or have been thinking of suicide, get help. Depression can be treated with anti-depressant medication and counselling. Long-term depression will often take a few weeks to clear, even with appropriate medication. Follow-up care is important. SUICIDAL IDEATION: Suicidal ideation is a common medical term for thoughts about suicide, which may be as detailed as a formulated plan, without the suicidal act itself. Although most people who undergo suicidal ideation do not commit suicide, some go on to make suicide attempts. The range of suicidal ideation varies greatly from fleeting to detailed planning, role playing, and unsuccessful attempts. While thoughts about suicide are common, most people do not carry out serious actions to commit suicide. Based upon your evaluation and discussion with you, we do not believe you are currently at risk to act upon your thoughts of suicide. You have agreed to return to the Emergency Department, at any time, if you feel inclined to act upon your suicidal thoughts. FOLLOW-UP CARE: If you experience worsening or a significant change in your symptoms, notify the physician immediately or return to the Emergency Department at any time for re- evaluation. Referrals: [facility] [Outside] - Follow up as needed [facility] [Outside] - 08/31/18 Original Note: ED General - General Chief Complaint: Psych Problem Stated Complaint: PSYCH EVAL Time Seen by Provider: 08/28/18 18:35 Notes: Patient is a 23-year-old female at 10 weeks by ultrasound who presents complaining of suicidal ideation. Patient states that she has been feeling intermittently suicidal for the past several weeks, became much more concerned when her thoughts veered to an actual plan today. States that she thought about taking all medications in her house. Patient reports a history of depression and previous suicide attempts. Last suicide attempt was 2 years via medication overdose. Patient states there is no clear trigger for why she is feeling this way. Nothing seems to improve or worsen her symptoms. She does not have a mental health care provider. Not on any current psychiatric medications. TRAVEL OUTSIDE OF THE [place] IN LAST 30 DAYS: No - Related Data Allergies/Adverse Reactions: naproxen Allergy (Verified 08/28/18 18:04) Past Medical History - General Information source: Patient - Social History Smoking Status: Current Every Day Smoker Frequency of alcohol use: None Drug Abuse: Marijuana Lives with: Parents Family History: Reviewed & Not Pertinent Patient has suicidal ideation: Yes Patient has homicidal ideation: No Renal/ Medical History: Denies: Hx Peritoneal Dialysis Musculoskeletal Medical History: Reports Hx Musculoskeletal Deformity - scoliosis Psychiatric Medical History: Reports: Hx Bipolar Disorder, Hx Depression Past Surgical History: Reports: Hx Oral Surgery, Hx Orthopedic Surgery - R knee, hand, Hx Tonsillectomy - Immunizations Immunizations up to date: Yes Hx Diphtheria, Pertussis, Tetanus Vaccination: Yes Review of Systems - Review of Systems Notes: Constitutional: Negative for fever. HENT: Negative for sore throat. Eyes: Negative for visual changes. Cardiovascular: Negative for chest pain. Respiratory: Negative for shortness of breath. Gastrointestinal: Negative for abdominal pain, vomiting or diarrhea. Genitourinary: Negative for dysuria. Musculoskeletal: Negative for back pain. Skin: Negative for rash. Neurological: Negative for headaches, weakness or numbness. 10 point ROS negative except as marked above and in HPI. Physical Exam - Vital signs Vitals: Temp Pulse Resp BP Pulse Ox 98.5 F 81 16 125/76 100 08/28/18 18:08 08/28/18 18:08 08/28/18 18:08 08/28/18 18:08 08/28/18 18:08 Interpretation: Normal Notes: PHYSICAL EXAMINATION: GENERAL: Well-appearing, well-nourished and in no acute distress. HEAD: Atraumatic, normocephalic. EYES: Pupils equal round and reactive to light, extraocular movements intact, sclera anicteric, conjunctiva are normal. ENT: nares patent, oropharynx clear without exudates. Moist mucous membranes. NECK: Normal range of motion, supple without lymphadenopathy LUNGS: Breath sounds clear to auscultation bilaterally and equal. No wheezes rales or rhonchi. HEART: Regular rate and rhythm without murmurs ABDOMEN: Soft, nontender, normoactive bowel sounds. No guarding, no rebound. No masses appreciated. EXTREMITIES: Normal range of motion, no pitting or edema. No cyanosis. NEUROLOGICAL: No focal neurological deficits. Moves all extremities spontaneously and on command. PSYCH: Flat affect and mood. Poor eye contact. SKIN: Warm, Dry, normal turgor, no rashes or lesions noted. Course - Re-evaluation Re-evalutation: 08/28/18 21:02 Patient presents with suicidal ideation with a plan to overdose on medications but does not specify what medications she would take. Has had a history of suicide attempts in the past on repeated occasions although has never required sedation due to an overdose. She is here with her mother. She expresses that if she does not get help she fears to harm herself. Denies acute medical complaints. Medical screening labs and exam unremarkable. Patient has had a confirmed intrauterine , currently 10 weeks gestation without current symptoms that would necessitate ultrasound or further evaluation of the . She is otherwise cleared for evaluation and disposition by [facility] in the morning. - Vital Signs Vital signs: Temp Pulse Resp BP Pulse Ox 98.5 F 81 16 125/76 100 08/28/18 18:08 08/28/18 18:08 08/28/18 18:08 08/28/18 18:08 08/28/18 18:08 - Laboratory Result Diagrams: 08/28/18 18:30 08/28/18 18:30 Laboratory results interpreted by me: 08/28/18 08/28/18 18:30 18:30 BUN 5 L Creatinine 0.46 L Urine Ketones 80 H Ur Leukocyte Esterase TRACE H Urine Ascorbic Acid 40 H Salicylates < 1.0 L Acetaminophen < 10 L - EKG Interpretation by Me Additional EKG results interpreted by me: 08/28/18 21:03 Sinus rhythm, rate 79. No ST elevations or depressions. QTC is 399. Discharge - Discharge Clinical Impression: Suicidal ideation, First trimester , Depression with anxiety Condition: Fair
[2018-08-29] MEDS ORDERED: PROMETHAZINE HCL 25 MG TABLET PO ONE (07:38)
--- NOTE | 2018-08-29 09:20 | ER Document Report ---
Doctor's Note Notes: 08/29/18 09:18 Patient presents with suicidal ideation with a plan to overdose on medications but does not specify what medications she would take. Has had a history of suicide attempts in the past on repeated occasions although has never required sedation due to an overdose. She is here with her mother. She expresses that if she does not get help she fears to harm herself. Denies acute medical complaints. Medical screening labs and exam unremarkable. Patient has had a confirmed intrauterine , currently 10 weeks gestation without current symptoms that would necessitate ultrasound or further evaluation of the . As the rounding physician this AM, I assessed the patient's labs, vitals, and r ecords. No concerning findings this morning. Patient denies any acute complaints. Patient is cleared for disposition by behavioral health team. PHYSICAL EXAMINATION: GENERAL: Well-appearing, well-nourished and in no acute distress. HEAD: Atraumatic, normocephalic. EYES: Pupils equal round extraocular movements intact, conjunctiva are normal. ENT: Nares patent NECK: Normal range of motion LUNGS: No respiratory distress Musculoskeletal: Normal range of motion Psych; tearful, denies suicidal ideation NEUROLOGICAL: Normal speech, normal gait. SKIN: Warm, Dry, normal turgor, no rashes or lesions noted. 08/29/18 18:50
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
[2018-08-29 11:20] VITALS: BP 103/66
== END 2018-08-29 11:21 | disposition home or self-care (01) ==
LOC: ER 17:46
DX: O26.91 Pregnancy related conditions, unspecified, first trimester (principal); R45.851 Suicidal ideations; O99.341 Other mental disorders complicating pregnancy, first trimester; F32.9 Major depressive disorder, single episode, unspecified; F41.9 Anxiety disorder, unspecified; O99.331 Smoking (tobacco) complicating pregnancy, first trimester; Z3A.10 10 weeks gestation of pregnancy
CPT/HCPCS: 36415; 80053; 80307; 81001; 85025; 93005; 93010; 99285

== ENCOUNTER 2019-08-31 08:30 | Emergency (ER) | payer SELFPAY ==
[2019-08-31] MEDS ORDERED: NORMAL SALINE 1000 ML 1,000 ML IV ONE ×2 (09:36→10:55)
[2019-08-31] MEDS ORDERED: MORPHINE SULFATE 10 MG/ML INJ IV ONE ×3 (09:36→14:09)
[2019-08-31] MEDS ORDERED: ONDANSETRON HCL INJ/PF 4 MG/2 ML SDV IV ONE (09:36)
--- NOTE | 2019-08-31 09:53 | ER Document Report ---
ED General - General Chief Complaint: Abdominal Pain Stated Complaint: FLANK PAIN Time Seen by Provider: 08/31/19 09:09 Mode of Arrival: Ambulatory Information source: Patient TRAVEL OUTSIDE OF THE [place] IN LAST 30 DAYS: No - HPI Notes: Patient presents with right flank pain and right lower quadrant abdominal pain. She states she has had this for 2 days. She has had decreased appetite with nausea and vomiting. She is also been constipated. She has had decreased urine output but no pain or discomfort with urination. No vaginal symptoms. She has had a fever. She is also had chills. The right flank pain is constant. Is moderate. It radiates to the right lower abdomen. It is a aching pain. It is worse with movement and better with rest. - Related Data Allergies/Adverse Reactions: naproxen Allergy (Verified 08/28/18 18:04) Past Medical History - General Information source: Patient - Social History Smoking Status: Current Every Day Smoker Frequency of alcohol use: None Drug Abuse: None Family History: Reviewed & Not Pertinent Patient has suicidal ideation: No Patient has homicidal ideation: No Renal/ Medical History: Denies: Hx Peritoneal Dialysis Musculoskeletal Medical History: Reports Hx Musculoskeletal Deformity - scoliosis Psychiatric Medical History: Reports: Hx Bipolar Disorder, Hx Depression Past Surgical History: Reports: Hx Oral Surgery, Hx Orthopedic Surgery - R knee, hand, Hx Tonsillectomy - Immunizations Immunizations up to date: Yes Hx Diphtheria, Pertussis, Tetanus Vaccination: Yes Review of Systems - Review of Systems Constitutional: Chills, Fever, Malaise Cardiovascular: denies: Chest pain, Palpitations Respiratory: denies: Cough, Short of breath -: Yes All other systems reviewed and negative Physical Exam - Vital signs Vitals: Temp Pulse Resp BP Pulse Ox 99.3 F 115 H 16 130/77 H 98 08/31/19 08:35 08/31/19 08:35 08/31/19 08:35 08/31/19 08:35 08/31/19 08:35 Interpretation: Tachycardic - General General appearance: Appears well, Alert - HEENT Head: Normocephalic, Atraumatic Eyes: Normal Pupils: PERRL - Respiratory Respiratory status: No respiratory distress Chest status: Nontender Breath sounds: Normal Chest palpation: Normal - Cardiovascular Rhythm: Regular Heart sounds: Normal auscultation Murmur: No - Abdominal Inspection: Normal Distension: No distension Bowel sounds: Hypoactive Tenderness: Tender - Right lower quadrant and right flank have moderate tenderness to palpation with guarding and rebound. Organomegaly: No organomegaly - Back Back: Normal, Tender, CVA tenderness - Right side - Extremities General upper extremity: Normal inspection, Nontender, Normal color, Normal ROM, Normal temperature General lower extremity: Normal inspection, Nontender, Normal color, Normal ROM, Normal temperature, Normal weight bearing. No: John's sign - Neurological Neuro grossly intact: Yes Cognition: Normal Orientation: AAOx4 [place] Coma Scale Eye Opening: Spontaneous [place] Coma Scale Verbal: Oriented Joe Coma Scale Motor: Obeys Commands Joe Coma Scale Total: 15 Speech: Normal Motor strength normal: LUE, RUE, LLE, RLE Sensory: Normal - Psychological Associated symptoms: Normal affect, Normal mood - Skin Skin Temperature: Warm Skin Moisture: Dry Skin Color: Normal Course - Re-evaluation Re-evalutation: 08/31/19 12:24 Patient has an obvious infected stone with hydro-ureter and hydronephrosis. She is tachycardic and not hypotensive. She does not have an elevated creatinine or elevated white blood cell count. She does have a fever of 101. She does meet Sirs criteria but not severe sepsis criteria. - Vital Signs Vital signs: Temp Pulse Resp BP Pulse Ox 99.9 F 108 H 16 116/90 H 100 08/31/19 12:09 08/31/19 12:09 08/31/19 08:35 08/31/19 12:09 08/31/19 12:09 - Laboratory Result Diagrams: 08/31/19 09:40 08/31/19 09:40 Laboratory results interpreted by me: 08/31/19 08/31/19 08/31/19 09:10 09:40 09:40 Plt Count 123 L Lymph % (Auto) 5.8 L Seg Neutrophils % 83.6 H Sodium 134.1 L Urine Protein 100 H Urine Ketones TRACE H Urine Blood MODERATE H Urine Urobilinogen 2.0 H Leukocyte Esterase Rfl MODERATE H Urine Ascorbic Acid 40 H - Diagnostic Test Radiology reviewed: Image reviewed, Reports reviewed Critical Care Note - Critical Care Note Total time excluding time spent on procedures (mins): 50 Comments: Approximate 50 minutes were spent taking care of this patient with sepsis and infected kidney stone. This was spent doing multiple reassessments. It was spent talking to multiple consultants. It was spent updating family. It was also spent reviewing laboratories and images. Discharge - Discharge Clinical Impression: Ureteral stone with hydronephrosis, Right ureteral stone Sepsis Qualifiers: Sepsis type: sepsis due to unspecified organism Sepsis acute organ dysfunction status: without acute organ dysfunction Qualified Code(s): A41.9 - Sepsis, unspecified organism UTI (urinary tract infection) Qualifiers: Urinary tract infection type: acute pyelonephritis Qualified Code(s): N10 - Acute pyelonephritis Condition: Fair Disposition: [facility]
[2019-08-31 10:01] LABS: ABSOLUTE LYMPHOCYTES (AUTO) 0.5 10^3/uL (0.5-4.7); ABSOLUTE NEUT (AUTO) 7.9 10^3/uL (1.7-8.2); BASOPHILS % (AUTO) 0.3 % (0-2); EOSINOPHILS % (AUTO) 0.1 % (0-6); HEMATOCRIT 40.2 % (36.0-47.0); HEMOGLOBIN 14.2 g/dL (12.0-15.5); LYMPHOCYTES % (AUTO) 5.8 % (13-45); MEAN CORPUSCULAR HEMOGLOBIN 32.7 pg (27.0-33.4); MEAN CORPUSCULAR HGB CONC 35.3 g/dL (32.0-36.0); MEAN CORPUSCULAR VOLUME 93 fl (80-97); MONOCYTES % (AUTO) 10.2 % (3-13); PLATELET COUNT 123 10^3/uL (150-450); RED BLOOD COUNT 4.35 10^6/uL (3.72-5.28); RED CELL DISTRIBUTION WIDTH 13.8 % (11.5-14.0); SEGMENTED NEUTROPHILS % (AUTO) 83.6 % (42-78); TOTAL CELLS COUNTED % (AUTO) 100 %; WHITE BLOOD COUNT 9.5 10^3/uL (4.0-10.5)
[2019-08-31 10:06] LABS: APPEARANCE,URINE TURBID; BILIRUBIN,URINE NEGATIVE (NEGATIVE); COLOR,URINE YELLOW; GLUCOSE, URINE NEGATIVE (NEGATIVE); KETONES,URINE TRACE mg/dL (NEGATIVE); PROTEIN,URINE 100 mg/dL (NEGATIVE); URINE SPECIFIC GRAVITY 1.027
[2019-08-31 10:34] LABS: ALBUMIN 3.9 g/dL (3.5-5.0); ALKALINE PHOSPHATASE 74 U/L (38-126); ANION GAP 12 (5-19); ASPARTATE AMINO TRANSFERASE 25 U/L (14-36); BILIRUBIN,DIRECT 0.3 mg/dL (0.0-0.4); BILIRUBIN,TOTAL 0.8 mg/dL (0.2-1.3); BLOOD UREA NITROGEN 10 mg/dL (7-20); CALCIUM 8.9 mg/dL (8.4-10.2); CARBON DIOXIDE 24 mmol/L (22-30); CHLORIDE 98 mmol/L (98-107); GLUCOSE 104 mg/dL (75-110); POTASSIUM 3.8 mmol/L (3.6-5.0); TOTAL PROTEIN 7.3 g/dL (6.3-8.2)
--- NOTE | 2019-08-31 11:23 | RADIOLOGY REPORT (SQ) ---
EXAM DESCRIPTION: CT ABD/PELVIS NO ORAL OR IV COMPLETED DATE/TIME: 08/31/2019 11:01 am REASON FOR STUDY: rlq pain COMPARISON: None. TECHNIQUE: CT scan of the abdomen and pelvis performed without intravenous or oral contrast. Images reviewed with lung, soft tissue, and bone windows. Reconstructed coronal and sagittal MPR images revi ewed. All images stored on PACS. All CT scanners at this facility use dose modulation, iterative reconstruction, and/or weight based d osing when appropriate to reduce radiation dose to as low as reasonably achievable (ALARA). [facility]: Dose Right [facility]: CareDose [facility]: Dose Right [facility]: Teradose 4D [facility]: Smart Comfy RADIATION DOSE: CT Rad equipment meets quality standard of care and radiation dose reduction techniq ues were employed. CTDIvol: 5.1 mGy. DLP: 281 mGy-cm.mGy. LIMITATIONS: None. FINDINGS: LOWER CHEST: No significant findings. No nodules or infiltrates. NON-CONTRASTED LIVER, SPLEEN, ADRENALS: Evaluation limited by lack of IV contrast. No identified sign ificant masses. PANCREAS: No masses. No peripancreatic inflammatory changes. GALLBLADDER: No identified stones by CT criteria. No inflammatory changes to suggest cholecystitis. RIGHT KIDNEY AND URETER: No suspicious masses. Assessment limited by lack of IV contrast. 5 x 10 mm calculus in the distal ureter at the level of S1. Hydronephrosis and hydroureter. LEFT KIDNEY AND URETER: Low-attenuation cortical lesion, probable cortical cyst. Assessment limited b y lack of IV contrast. Tiny midpole calculus. No hydronephrosis or hydroureter. AORTA AND RETROPERITONEUM: No aneurysm. No retroperitoneal masses or adenopathy. BOWEL AND PERITONEAL CAVITY: No obvious masses or inflammatory changes. No free fluid. APPENDIX: Normal. PELVIS, BLADDER, AND ABDOMINAL WALL:No abnormal masses. No free fluid. Bladder normal. BONES: No significant findings. OTHER: No other significant finding. IMPRESSION: 1. 5 X 10 MM CALCULUS IN THE DISTAL RIGHT URETER. OBSTRUCTIVE UROPATHY WITH HYDRONEPHROSIS AND HYDRO URETER. 2. TINY NONOBSTRUCTING CALYCEAL CALCULUS IN THE LEFT KIDNEY. PROBABLE CORTICAL CYST IN THE LEFT KIDN EY. 3. NO OTHER SIGNIFICANT OR ACUTE PROCESS IN THE ABDOMEN OR PELVIS. COMMENT: Quality ID # [id number]: Final reports with documentation of one or more dose reduction techniques (e.g., Automated exposure control, adjustment of the mA and/or kV according to patient size, use of iterative reconstruction technique) TECHNICAL DOCUMENTATION: JOB ID: [id number] 2010 [email or web address]- All Rights Reserved Reading location - IP/workstation name: [email or web address]
[2019-08-31] MEDS ORDERED: CEFTRIAXONE 2 GM/D5W RTU 2 GM/50 ML RTUPB IV ONE (11:31)
--- NOTE | 2019-08-31 14:46 | ER Document Report ---
Doctor's Note Notes: 08/31/19 14:46 Reexamined patient approximately 2:47 PM. Patient resting comfortably in the bed talking with the emergency medical crew. Her pain appears to be well controlled at this time. She has no complaints or issues. Patient is still mildly tachycardic but has a stable blood pressure. Lungs are clear. Skin is w arm and dry.
[2019-08-31 14:49] VITALS: BP 135/67
== END 2019-08-31 14:49 | disposition short-term general hospital (02) ==
LOC: ER 08:30
DX: N10 Acute pyelonephritis (principal); A41.9 Sepsis, unspecified organism; N13.2 Hydronephrosis with renal and ureteral calculous obstruction; R10.31 Right lower quadrant pain; R50.9 Fever, unspecified; R11.2 Nausea with vomiting, unspecified; R00.0 Tachycardia, unspecified; F17.200 Nicotine dependence, unspecified, uncomplicated
CPT/HCPCS: 96376; 99291; 96361; 96375; 96365; 36415; 87086; 84703; 85025; 87088; 80053; 81001; 87186; 74176; J2270; J2405; J7030; J0696

== ENCOUNTER → 2020-07-25 | Outpatient (CLI) | payer SELFPAY ==
--- NOTE | 2020-07-25 12:09 | RADIOLOGY REPORT (SQ) ---
EXAM DESCRIPTION: U/S [id number] TRNABD 1GES W/ODOP IMAGES COMPLETED DATE/TIME: 07/25/2020 8:48 am REASON FOR STUDY: (Z34.01)ENCNTR FOR SUPRVSN OF NORMAL , UNSP, UNSP TRIMESTER Z34.90 ENCNT R FOR SUPRVSN OF NORMAL , UNSP, UNSP TR COMPARISON: None. TECHNIQUE: Transabdominal static and realtime grayscale images acquired of the pelvis. Additional se lected spectral and color Doppler images recorded. All images stored on PACs. bHCG: Not available. CLINICAL DATES: MICHEL: 02/25/2021. EGA: 9 weeks 2 days LIMITATIONS: None. FINDINGS: FETUS: Non-viable single intrauterine . ULTRASOUND EGA: 8 weeks 1 day ULTRASOUND MICHEL: 03/05/2021 EFW: Not applicable less than 20 weeks. CRL: 1.72 cm YOLK SAC: Enlarged measures 7 mm FHR: Not visualized.. SURVEY: Too early to assess. AMNIOTIC FLUID: Adequate amount. PLACENTA: Not yet developed due to early gestation. SUBCHORIONIC BLEED: No. SIZE OF BLEED: Not applicable. UTERUS: The uterus measures 9.3 x 6.3 x 5.9 cm. No masses. No anomalies. CERVICAL LENGTH: Not obtained. Closed. RIGHT ADNEXA: The right ovary measures 2.8 x 1.9 x 2.3 cm. A complex 1.8 x 1.5 x 1.2 cm cyst may re present corpus luteal. Normal vascular flow. LEFT ADNEXA: The left ovary is not visualized due to overlying bowel gas. FREE FLUID: Small volume free fluid in the cul-de-sac. OTHER: No other significant finding. IMPRESSION: 1. Single non-viable INTRAUTERINE . EGA: 8 weeks 1 day. Correlation suggest ed. 2. Additional findings as above. Trimester of : First trimester - 0 to 13 weeks. COMMENT: 1. The results of this examination were called to the [facility] on 07/25/2020. The patient was also sent to the [facility] Department. TECHNICAL DOCUMENTATION: JOB ID: [id number] 2010 [employer]- All Rights Reserved rev Reading location - IP/workstation name: [email or web address]
== END ==
LOC: RAD 08:21
PROVIDERS: ATTEND Midwife
DX: Z34.01 Encounter for supervision of normal first pregnancy, first trimester (principal); Z3A.08 8 weeks gestation of pregnancy
CPT/HCPCS: 76801